=== PATIENT | female | born 1995 | race American Indian/Alaskan Native ===

== ENCOUNTER 2021-12-31 02:43 | Emergency (ER) | payer MEDICAID, OTHER ==
[2021-12-31 02:48] VITALS: BP 137/93
[2021-12-31] MEDS ORDERED: HYDROcodone/ACETAMINOPHEN 5-325 MG TAB PO ONE (03:34)
[2021-12-31] MEDS ORDERED: LIDOCAINE (1%) 10 MG/1 ML VIAL 20 ML MDV INFILTRATI ONE (04:22)
[2021-12-31] MEDS ORDERED: IBUPROFEN 800 MG TAB PO ONE (05:14)
[2021-12-31] MEDS ORDERED: TETANUS,DIPH,PERTUSS(ACELL) VACCINE 0.5 ML SYRINGE IM ONE (05:16)
[2021-12-31] MEDS ORDERED: cephALEXin 500 MG CAP PO ONE (05:16)
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
--- NOTE | 2021-12-31 05:48 | XRay Report ---
RIGHT XR hand 1V RT INDICATION / CLINICAL INFORMATION: LACERATION COMPARISON: None available. FINDINGS: Skin irregularity compatible with laceration involving index finger. No acute fracture. No radiopaque foreign bodies. IMPRESSION: 1. Index finger laceration. Signer Name: Livan Nguyen II, MD Signed: 12/31/2021 5:43 AM Workstation Name: [id number]
== END 2021-12-31 06:00 | disposition home or self-care (01) ==
LOC: ED 02:43
DX: S61.411A Laceration without foreign body of right hand, initial encounter (principal); J45.909 Unspecified asthma, uncomplicated; X58.XXXA Exposure to other specified factors, initial encounter; Y93.89 Activity, other specified; Y92.89 Other specified places as the place of occurrence of the external cause; Y99.8 Other external cause status
CPT/HCPCS: 12002; 73120; 90471; 90715; 99283; J3490